=== PATIENT | male | born 1965 | race Caucasian/White ===

== ENCOUNTER 2018-09-23 23:42 | Inpatient (IN) ==
--- OUTSIDE RECORDS SUMMARY | 2018-09-23 23:44 | External Medical Summary | Continuity of Care Document ---
:1965 Author Name Kian Portillo Address Unavailable Unavailable , Care Team Providers Name Role Phone NonMNPG M.DBala Unavailable [email or web address] [email or web address], NO Unavailable Unavailable Problems Active medical history not documented Allergies and Adverse Reactions Allergy history not documented Medications Medications not documented Procedures Procedures not documented Immunizations Immunizations not documented Plan of Treatment Planned Observations Planned Goals not documented Results No Known Results Results not documented
[2018-09-24] MEDS ORDERED: ONDANSETRON INJ 2 MG/ML 2 ML VIAL IV STA (00:08)
[2018-09-24] MEDS: HYDROmorphone INJ 1 MG/ML SYRINGE IV PRN ×2 (00:17→00:44)
[2018-09-24 00:21] LABS: Basophils # (auto) 0.06 K/uL (0-0.2); Basophils % (auto) 0.6 %; Eosinophils # (auto) 0.12 K/uL (0-0.5); Eosinophils % (auto) 1.1 %; Hematocrit (blood only) 47.2 % (42-52); Hemoglobin 16.5 g/dL (14.0-18.0); Immature Granulocytes # (auto) 0.03 K/uL (0.00-0.02); Immature Granulocytes % (auto) 0.3 %; Lymphocytes % (auto) 19.7 %; Mean Corpuscular Volume 87.9 fL (80-100); Mean Platelet Volume 10.2 fL (7.4-10.4); Monocytes # (auto) 0.83 K/uL (0.11-0.59); Monocytes % (auto) 7.8 %; Neutrophils % (auto) 70.5 %; Platelet Count 216 K/uL (130-400); RDW Coefficient of Variation 12.8 % (11.5-14.5); RDW Standard Deviation 40.9 fL (36.4-46.3); Red Blood Count 5.37 M/uL (4.7-6.1); White Blood Count 10.64 K/uL (4.8-10.8)
[2018-09-24 00:45] LABS: Albumin Level 3.5 gm/dl (3.4-5.0); BUN Creatinine Ratio 14.5 (10-20); Bilirubin,Total 0.6 mg/dl (0.2-1); Calcium 9.2 mg/dl (8.5-10.1); Creatinine Clr Calc Pharmacy 61.1 ml/min; Est GFR (African American) 65.3; Est GFR (Non-African American) 56.3; Globulin 3.6 gm/dl (2.5-4.0); Total Protein 7.1 gm/dl (6.4-8.2)
[2018-09-24] MEDS ORDERED: KETOROLAC TROMETHAMINE 15 MG/ML VIAL IV ONE (00:57)
[2018-09-24] MEDS ORDERED: PROMETHAZINE 25 MG/51 ML BAG IV STA (01:51)
--- NOTE | 2018-09-24 02:21 | Emergency Department Note ---
Entered by Nichole Falcon acting as a scribe for ED Provider Note CHIEF COMPLAINT: Right flank pain HISTORY OF PRESENT ILLNESS: The patient is a 53 year old male who presents to the Emergency Room with complaints of constant right flank pain that began 22:00, about 2 hours ago. The patient rates the pain as a 10/10 in severity. He complains of RLQ abdominal pain, nausea/vomiting, inability to void, and right testicle soreness. Pt denies LOC, headache, fevers, chills, diaphoresis, visual changes, neck pain, chest pain, breathing difficulties, back pain, melena, hematochezia, urinary symptoms, numbness, weakness, lymphadenopathy, rash, or other complaints. He notes that he's had two similar episodes in the past, but the symptoms relieved without treatment. REVIEW OF SYSTEMS: See HPI for pertinent positives and negatives. A total of ten systems were reviewed and were otherwise negative. PMHx/PSHx: Appendectomy SOCIAL HISTORY: Patient lives at home. PHYSICAL EXAM: GENERAL: Awake, alert, very uncomfortable-appearing, in no distress HENT: Normocephalic, atraumatic. Oropharynx unremarkable. EYES: PERRL. Normal conjunctiva. Sclera non-icteric. NECK: Inspection normal. Non-tender. Supple. No nuchal rigidity. FROM. No masses. RESPIRATORY: Clear to auscultation. No wheezes. No rales. Normal respiratory effort. CARDIAC: Normal rate. Normal rhythm. No murmurs. No rubs. Extremities warm and well perfused. Pulses equal. No JVD. GI: Soft, non-distended. RLQ tenderness to palpation. No rebound or guarding. No masses. RECTAL: Deferred. MUSCULOSKELETAL: Atraumatic. Chest examination reveals no tenderness. The back is symmetrical on inspection without obvious abnormality. There is right CVA tenderness to palpation. No joint edema. LOWER EXTREMITIES: Calves are equal size bilaterally and non-tender. No edema. No discoloration. NEURO: Normal sensorium. No sensory or motor deficits noted. SKIN: No rash or jaundice noted. EMERGENCY DEPARTMENT COURSE: 0001: Past medical records reviewed. The patient was evaluated in room A12B, and a complete history and physical examination were performed. 0038: I reassessed the patient. The patient stated that he was feeling better, but he still had some pain. 0151: The patient still having pain and nausea. IV Phenergan was ordered. The patient is in no condition to be discharged. [facility] and discussed the case with Dr. Gonzalez. MEDICAL DECISION MAKING: Triage Nursing notes reviewed and agree them. Additional history obtained from the family. The patient's history was concerning for flank and abdominal pain. Differential diagnosis: Etiologies such as renal colic, appendicitis, diverticulitis, mesenteric ischemia, aortic pathology, infections, inflammatory bowel disease, PUD, biliary pathology, UTI, as well as others were entertained. Physical examination findings: As above. ER treatment provided: Saline hydration IV Zofran IV Dilaudid x2 IV Toradol On reassessment the patient felt nausea and more pain. He vomited. IV Phenergan. Diagnostic interpretation by me: The labs revealed an unremarkable CBC and chemistry panel. Urinalysis revealed hematuria. There was no sign of UTI. Imaging studies: CT scan performed and revealed right-sided hydroureter and distal right ureteral stone. It appears that the patient has isolated renal colic from a right sided stone. Unfortunately the patient is still symptomatic. He will need further management in the hospital. Consultation: [facility] The case was discusse d and diagnostics were reviewed. The patient was evaluated in the ER for further management. IMPRESSION: Ureterolithiasis, Right flank pain PLAN: Admitted The scribe's documentation has been prepared under my direction and personally reviewed by me in its entirety. I confirm that the note above accurately reflec ts all work, treatment, procedures, and medical decision making performed by me. Impression & Plan Ureterolithiasis, Right flank pain Past Med/Surg History Surgical History History of appendectomy Social History Feels Safe at Home: Yes Smoking Status: Never smoker Results & Data Vital Signs Vital Signs - 24 hr 09/23/18 23:46 09/24/18 00:18 09/24/18 00:36 Temperature 36.7 C Temperature Source Oral Sepsis Recent Fever Within 48 Hours No Sepsis New/Unexplained Change in Mental Status No Sepsis Action Taken by Nursing No Action Required Pulse Rate 71 Pulse Rate [Finger] 65 62 Respiratory Rate 22 18 20 Respiratory Effort / Characteristics Non-Labored Spontaneous Respiratory Depth Normal Blood Pressure 140/78 Blood Pressure [Right Arm] 145/90 H 145/92 H Blood Pressure Mean 98 Blood Pressure Mean [Right Arm] 108 109 Blood Pressure Position [Right Arm] Sitting Pulse Oximetry 98 99 98 Oxygen Delivery Method Room Air Room Air Room Air Oxygen Flow Rate 09/24/18 01:58 Temperature Temperature Source Sepsis Recent Fever Within 48 Hours Sepsis New/Unexplained Change in Mental Status Sepsis Action Taken by Nursing Pulse Rate Pulse Rate [Finger] 67 Respiratory Rate 16 Respiratory Effort / Characteristics Non-Labored Spontaneous Respiratory Depth Normal Blood Pressure Blood Pressure [Right Arm] 136/80 Blood Pressure Mean Blood Pressure Mean [Right Arm] 98 Blood Pressure Position [Right Arm] Pulse Oximetry 95 Oxygen Delivery Method Nasal Cannula Oxygen Flow Rate 2 Home Medications Current Medication List: was personally reviewed by me Laboratory Data Attestation: I reviewed the patient's lab results. Result diagrams: 09/24/18 00:10 09/24/18 00:10 Lab Results 09/24/18 09/24/18 Range/Units 00:10 00:10 WBC 10.64 (4.8-10.8) K/uL RBC 5.37 (4.7-6.1) M/uL Hgb 16.5 (14.0-18.0) g/dL Hct 47.2 (42-52) % MCV 87.9 (80-100) fL MCH 30.7 (25-34) pg MCHC 35.0 (32-36) g/dL RDW Std Deviation 40.9 (36.4-46.3) fL RDW Coeff of Maria E 12.8 (11.5-14.5) % Plt Count 216 (130-400) K/uL MPV 10.2 (7.4-10.4) fL Immature Gran % (Auto) 0.3 % Neut % (Auto) 70.5 % Lymph % (Auto) 19.7 % [place] % (Auto) 7.8 % Eos % (Auto) 1.1 % Baso % (Auto) 0.6 % Immature Gran # (Auto) 0.03 H (0.00-0.02) K/uL Neut # (Auto) 7.50 H (1.4-6.5) K/uL Lymph # (Auto) 2.10 (1.2-3.4) K/uL [place] # (Auto) 0.83 H (0.11-0.59) K/uL Eos # (Auto) 0.12 (0-0.5) K/uL Baso # (Auto) 0.06 (0-0.2) K/uL Sodium 141 (136-145) mmol/L Potassium 4.0 (3.5-5.1) mmol/L Chloride 108 H (98-107) mmol/L Carbon Dioxide 21 (21-32) mmol/L Anion Gap 12.0 H (3-11) BUN 21 H (7-18) mg/dl Creatinine 1.43 H (0.6-1.4) mg/dl Est Cr Clr Drug Dosing 61.1 ml/min Est GFR ( Amer) 65.3 Est GFR (Non-Af Amer) 56.3 BUN/Creatinine Ratio 14.5 (10-20) Glucose 128 H (70-99) mg/dl Calcium 9.2 (8.5-10.1) mg/dl Total Bilirubin 0.6 (0.2-1) mg/dl AST 24 (15-37) U/L ALT 39 (12-78) U/L Alkaline Phosphatase 91 (45-117) U/L Total Protein 7.1 (6.4-8.2) gm/dl Albumin 3.5 (3.4-5.0) gm/dl Globulin 3.6 (2.5-4.0) gm/dl Albumin/Globulin Ratio 1.0 (0.9-2) Lipase 144 (73-393) U/L Administered Medications Hydromorphone HCl (Dilaudid) 1 mg IV Q15M PRN PRN Reason: Pain Stop: 10/08/18 00:07 Last Admin: 09/24/18 00:44 Dose: 1 mg Documented by: [id number] Admin: 09/24/18 00:17 Dose: 1 mg Documented by: [id number] Discontinued Medications Promethazine HCl (Phenergan) 25 mg in 51 mls @ 204 mls/hr IV NOW STA Stop: 09/24/18 02:05 Last Admin: 09/24/18 01:58 Dose: 204 mls/hr Documented by: [id number] Ketorolac Tromethamine (Toradol) 10 mg IV NOW ONE Stop: 09/24/18 00:58 Last Admin: 09/24/18 01:02 Dose: 10 mg Documented by: [id number] Ondansetron HCl (Zofran) 4 mg IV NOW STA Stop: 09/24/18 00:09 Last Admin: 09/24/18 00:17 Dose: 4 mg Documented by: [id number] Imaging Data Radiologist's Impression: Radiology results as stated below per my review and the radiologist's interpretation: CT ABDOMEN & PELVIS Without Contrast: 4 mm distal right ureteral calculus caus ing mild-moderate hydroureteronephrosis. Bilateral intrarenal calculi. Radiologist: Flaco Wallace MD Study ready at 00:34 and initial results transmitted at 01:12. Blood Pressure Blood Pressure Findings: Elevated blood pressure Discharge Plan Visit Data Chief Complaint: Kidney Stone Stated Complaint: abd pain/kidney pain ED Provider: Tobias Balbuena Discharge Problem: Ureterolithiasis, Right flank pain Forms Stand Alone Forms: My [facility] Prescriptions Prescriptions: No Action No Known Home Medications RF: 0 The scribe's documentation has been prepared under my direction and personally reviewed by me in its entirety. I confirm that the note above accurately reflects all work, treatment, procedures, and medical decision making performed by me.
[2018-09-24] MEDS ORDERED: ACETAMINOPHEN 325 MG TAB PO PRN (03:10)
[2018-09-24] MEDS ORDERED: POLYETHYLENE (MIRALAX) 17 GM PACK PO PRN (03:10)
[2018-09-24] MEDS ORDERED: ONDANSETRON INJ 2 MG/ML 2 ML VIAL IV PRN (03:10)
[2018-09-24] MEDS ORDERED: MoRPHine SULFATE 4 MG/ML 1 ML CARP\\VIAL IV PRN (03:10)
[2018-09-24] MEDS: SODIUM CHLORIDE 0.9% 1000ML 1,000 ML IV SCH ×2 (03:37→11:08)
--- NOTE | 2018-09-24 06:26 | History and Physical Report ---
DATE OF ADMISSION: 09/24/2018 CHIEF COMPLAINT: Renal colic. HISTORY OF PRESENT ILLNESS: This is 53-year-old male with no significant past medical history present with the right renal colic. Has severe pain in right flank region radiating to his groin around last evening associated with some nausea and vomiting. No kidney stones in the past. Denies any burning micturition or hematuria. Denies any fever, chills, feeling nauseous and dizzy. No headache, no blurred vision, no earache, no runny nose, no sore throat, no difficulty swallowing. No chest pain and no shortness of breath. No cough. No swelling in the legs. No rash. Resting comfortably and hemodynamically stable. ALLERGIES: No known drug allergies. PAST MEDICAL HISTORY: None. PAST SURGICAL HISTORY: Appendectomy. MEDICATIONS: None. FAMILY HISTORY: Nothing significant. SOCIAL HISTORY: Smoking history present. REVIEW OF SYMPTOMS: As per HPI. Rest of review of system negative. PHYSICAL EXAMINATION: GENERAL: The patient is of moderate build, not in acute distress. VITAL SIGNS: Temperature 36.7, pulse 67, respiratory rate 16, blood pressure 136/80, oxygen 95% on 2 liters. HEENT: No pallor, no icterus. Pupils equal, round, reactive to light. NECK: No JVD. No neck mass. No carotid bruit. CARDIOVASCULAR: S1, S2 heard, regular rate and rhythm, no murmur, no gallop. RESPIRATORY SYSTEM: Normal AP diameter. No accessory muscle use. No wheezing, no crackles. ABDOMEN: Soft, bowel sounds present, nontender. No distention. No CVA tenderness, no guarding, no rigidity. CENTRAL NERVOUS SYSTEM: Nonfocal. EXTREMITIES: No edema, no erythema. LABORATORIES: WBC 10.6, hemoglobin 16.5, hematocrit 47.2, platelets 216. Sodium 141, potassium 3.4, chloride 108, bicarbonate 21, creatinine 1.4, serum glucose 128, calcium 9.2, total bilirubin 0.6, AST 24, ALT 39, alkaline phosphatase 91, lipase 144. CT of the abdomen and pelvis, unofficial report 4 mm right kidney stone. ASSESSMENT AND PLAN: This is a 53-year-old male who presents with right renal colic. 1. Right renal colic, right kidney stone 4 mm. CAT scan unofficial report. We will wait for the official report. The patient is afebrile and no white count. We will follow the urinalysis. If it is positive we will start on antibiotics. We will keep him n.p.o., IV fluids and consult Urology for possible stent placement if the patient does not passed the stone or gets infected. 2. Deep venous thrombosis prophylaxis. Sequential compression devices. DISPOSITION: Admit to medical floor. Expect to discharge home and follow with family doctor. Level 1 full code. MTDD
--- NOTE | 2018-09-24 06:55 | CT Scan Report ---
CT SCAN OF THE ABDOMEN AND PELVIS WITHOUT CONTRAST CLINICAL HISTORY: Right flank pain COMPARISON STUDY: No previous studies for comparison. TECHNIQUE: CT scan of the abdomen and pelvis was performed from the lung bases to the proximal femurs . Images are reviewed in the axial, sagittal, and coronal planes. IV contrast was not administered fo r this examination. A dose lowering technique was utilized adhering to the principles of ALARA. CT DOSE: 411.30 mGy.cm FINDINGS: Lower chest: There is a solid 4 mm right middle lobe pulmonary nodule. The lungs patient, no further follow-up is indicated. There is a 28 mm lingular lung cyst. Liver: The unenhanced liver is normal in size, contour, and attenuation. There is no intrahepatic martinez iary ductal dilatation. Gallbladder: Unremarkable. Spleen: Normal in size and attenuation. Pancreas: Unremarkable. Adrenal glands: Unremarkable. Kidneys: There is a 3.5 mm lower pole right renal calculus. There is a 3 mm lower pole left renal freida culus. There are left renal parapelvic cysts. There is mild right-sided hydronephrosis and hydrourete r. There is a 4 mm distal right UVJ calculus. Bowel: There are no transition zone to indicate bowel obstruction. There is no evidence of acute dive rticulitis. By history the appendix is surgically absent. Peritoneum: There is no intraperitoneal free air or abdominal ascites. Vasculature: The abdominal aorta is normal in course and caliber. Adenopathy: None. Pelvic viscera: The bladder, and pelvic viscera are unremarkable. Skeletal structures: No destructive osseous lesions are seen. There is a suspected L1-2 disc protrusi on with secondary spinal canal narrowing. IMPRESSION: 1. Bilateral nephrolithiasis 2. 4 mm right UVJ calculus with secondary obstructive changes 3. No evidence of bowel obstruction. No evidence of free air. Electronically signed by: James Irene M.D. 09/24/2018 6:53 AM
[2018-09-24 06:58] LABS: Basophils # (auto) 0.02 K/uL (0-0.2); Basophils % (auto) 0.2 %; Eosinophils # (auto) 0.01 K/uL (0-0.5); Eosinophils % (auto) 0.1 %; Hematocrit (blood only) 44.1 % (42-52); Immature Granulocytes # (auto) 0.02 K/uL (0.00-0.02); Immature Granulocytes % (auto) 0.2 %; Lymphocytes # (auto) 1.42 K/uL (1.2-3.4); Lymphocytes % (auto) 15.6 %; Mean Corpuscular Volume 89.8 fL (80-100); Mean Platelet Volume 9.7 fL (7.4-10.4); Monocytes # (auto) 0.86 K/uL (0.11-0.59); Monocytes % (auto) 9.5 %; Neutrophils # (auto) 6.75 K/uL (1.4-6.5); Neutrophils % (auto) 74.4 %; Platelet Count 182 K/uL (130-400); RDW Coefficient of Variation 12.9 % (11.5-14.5); RDW Standard Deviation 42.5 fL (36.4-46.3); Red Blood Count 4.91 M/uL (4.7-6.1); White Blood Count 9.08 K/uL (4.8-10.8)
[2018-09-24 07:34] LABS: BUN Creatinine Ratio 16.5 (10-20); Calcium 8.4 mg/dl (8.5-10.1); Creatinine Clr Calc Pharmacy 67.2 ml/min; Est GFR (African American) 73.2; Est GFR (Non-African American) 63.2; Magnesium 2.2 mg/dl (1.8-2.4); Potassium 4.3 mmol/L (3.5-5.1)
--- NOTE | 2018-09-24 08:32 | Hospitalist Progress Note ---
Date of Service September 24, 2018 Subjective FABRICIO? cr 1.4. no baseline labs. On fluids. Will follow labs. Results & Data Vital Signs (Past 12 Hours) Vital Signs Temp Pulse Pulse Resp BP BP Pulse Ox 09/24/18 07:18 36.4 C L 59 L 18 112/71 95 09/24/18 03:15 36.5 C 53 L 14 129/82 95 09/24/18 02:56 68 18 115/77 96 09/24/18 01:58 67 16 136/80 95 09/24/18 00:36 62 20 145/92 H 98 09/24/18 00:18 65 18 145/90 H 99 09/23/18 23:46 36.7 C 71 22 140/78 98
[2018-09-24] MEDS ORDERED: TAMSULOSIN HCL 0.4 MG CAP PO SCH (09:00)
--- NOTE | 2018-09-24 09:41 | Hospitalist Progress Note ---
Date of Service September 24, 2018 Assessment & Plan (1) Ureterolithiasis: right renal colic secondary to right renal calculus with mild right-sided hydronephrosis and hydroureter -CT SCAN OF THE ABDOMEN AND PELVIS WITHOUT CONTRAST Kidneys: There is a 3.5 mm lower pole right renal calculus. There is a 3 mm lower pole left renal calculus. There are left renal parapelvic cysts. There is mild right-sided hydronephrosis and hydroureter. There is a 4 mm distal right UVJ calculus -Pain is controlled at this time -will continue IV fluids 125cc/hr as started by admitting hospitalist -continue tamsulosin -will have KUB -Urine analysis sample sent, awaiting results -[facility] urologist requested Acute kidney injury -unknown baseline creatinine -admission creatinine 1.43 and this downtrended to 1.3 with IV fluids as of AM of 09/24/18 Deep venous thrombosis prophylaxis. Sequential compression devices Subjective Patient seen and examined at bedside this morning. Patient ambulatory with IV fluids at 125 cc/hr. patient just made urine and sample cup is dark yellow. Patient feels right flank pain is controlled. He has not asked for additional pain medications since 1 AM. Patient denies vomiting. no chest pain. no shortness of breath. no abdomen pain. no dizziness. no lightheadedness Physical Exam Constitutional: WD/WN, vitals as above Eyes: PERRL, conjunctivae normal, anicteric sclerae EOM intact bilaterally ENMT: external ear and nose normal, oropharynx normal Neck: trachea midline, no thyromegaly normal visual inspection Respiratory: normal respiratory effort, lungs clear to auscultation Cardiovascular: RRR, no murmur, no edema Gastrointestinal (Abdomen): normal bowel sounds, soft, nontender, no hepatosplenomegaly Musculoskeletal: no cyanosis or clubbing, extremities motor strength 5/5 Head/Neck/Chest: normocephalic and head atraumatic Neurologic: PERRL, EOMI, accommodation nl, no face palsy, no dysarthria CN's II-XI intact bilaterally Psychiatric: A+Ox3, euthymic affect Results & Data Vital Signs (Past 12 Hours) Vital Signs Temp Pulse Pulse Resp BP BP Pulse Ox 09/24/18 07:18 36.4 C L 59 L 18 112/71 95 09/24/18 03:15 36.5 C 53 L 14 129/82 95 09/24/18 02:56 68 18 115/77 96 09/24/18 01:58 67 16 136/80 95 09/24/18 00:36 62 20 145/92 H 98 09/24/18 00:18 65 18 145/90 H 99 09/23/18 23:46 36.7 C 71 22 140/78 98
[2018-09-24 09:53] LABS: Appearance Urine Clear (Clear); Bacteria Urine Automated Negative (Negative); Bilirubin Urine Negative (Negative); Blood Urine Trace (Negative); Color Urine Dark Yellow; Epithelial Cell Urine Auto 0-5 /lpf (0-5); Glucose Urine UA Negative (Negative); Ketones Urine Trace (Negative); Leukocyte Esterase Urine Negative (Negative); Nitrite Urine Negative (Negative); Protein Urine Negative (Negative); RBC Urine Automated 0-4 /hpf (0-4); Specific Gravity Urine 1.022 (1.000-1.030); Urobilinogen Urine Negative (Negative)
--- NOTE | 2018-09-24 10:38 | XRay Report ---
XR KUB/Abdomen 1 view CLINICAL HISTORY: Kidney stones COMPARISON STUDY: CT scan dated 09/24/2018 FINDINGS: There is a tiny lower pole right renal calculus. The patient's lower pole left renal calcul us is clinically visualized. There are several pelvic basin calcifications. It is unclear which of th anuj correlates with the recently described distal right ureteral calculus. IMPRESSION: 1. Bilateral nephrolithiasis although the lower pole left renal calculus is only equivocally visualiz ed 2. Right pelvic basin calcifications. It is difficult with certainty to determine which of these ronnie elates with the recently described distal right ureteral calculus Electronically signed by: James Irene M.D. 09/24/2018 10:36 AM
[2018-09-24] MEDS ORDERED: IBUPROFEN 200 MG TAB PO PRN (12:11)
--- NOTE | 2018-09-24 12:20 | Discharge Summary ---
Date of Service September 24, 2018 Admission HPI Per Admitting Provider HISTORY OF PRESENT ILLNESS: This is 53-year-old male with no significant past medical history present with the right renal colic. Has severe pain in right flank region radiating to his groin around last evening associated with some nausea and vomiting. No kidney stones in the past. Denies any burning micturition or hematuria. Denies any fever, chills, feeling nauseous and dizzy. No headache, no blurred vision, no earache, no runny nose, no sore throat, no difficulty swallowing. No chest pain and no shortness of breath. No cough. No swelling in the legs. No rash. Resting comfortably and hemodynamically stable. ALLERGIES: No known drug allergies. PAST MEDICAL HISTORY: None. PAST SURGICAL HISTORY: Appendectomy. MEDICATIONS: None. FAMILY HISTORY: Nothing significant. SOCIAL HISTORY: Smoking history present. REVIEW OF SYMPTOMS: As per HPI. Rest of review of system negative. Admission Exam Per Admitting Provider PHYSICAL EXAMINATION: GENERAL: The patient is of moderate build, not in acute distress. VITAL SIGNS: Temperature 36.7, pulse 67, respiratory rate 16, blood pressure 136/80, oxygen 95% on 2 liters. HEENT: No pallor, no icterus. Pupils equal, round, reactive to light. NECK: No JVD. No neck mass. No carotid bruit. CARDIOVASCULAR: S1, S2 heard, regular rate and rhythm, no murmur, no gallop. RESPIRATORY SYSTEM: Normal AP diameter. No accessory muscle use. No wheezing, no crackles. ABDOMEN: Soft, bowel sounds present, nontender. No distention. No CVA tenderness, no guarding, no rigidity. CENTRAL NERVOUS SYSTEM: Nonfocal. EXTREMITIES: No edema, no erythema. Principal Diagnosis right renal colic secondary to right renal calculus with mild right-sided hydronephrosis and hydroureter; acute kidney injury Discharge Exam Constitutional WD/WN, vitals as above Eyes PERRL, conjunctivae normal, anicteric sclerae EOM intact bilaterally ENMT external ear and nose normal, oropharynx normal Neck trachea midline, no thyromegaly normal visual inspection Respiratory normal respiratory effort, lungs clear to auscultation Cardiovascular RRR, no murmur, no edema Gastrointestinal (Abdomen) normal bowel sounds, soft, nontender, no hepatosplenomegaly Musculoskeletal no cyanosis or clubbing, extremities motor strength 5/5 Head/Neck/Chest: normocephalic and head atraumatic Neurologic PERRL, EOMI, accommodation nl, no face palsy, no dysarthria CN's II-XI intact bilaterally Psychiatric A+Ox3, euthymic affect Discharge Data Allergies Allergy/AdvReac Type Severity Reaction Status Date / Time No Known Allergies Allergy Unverified 09/24/18 01:35 Consultations 09/24/18 02:11 ED Decision to Admit Stat 09/24/18 08:00 Consult Urology Routine Ordered Studies 09/24/18 00:08 CT abd pelvis wo con Urgent Hospital Course (1) Ureterolithiasis: right renal colic secondary to right renal calculus with mild right-sided hydronephrosis and hydroureter; acute kidney injury -right flank pain symptoms on hospital presentation -CT SCAN OF THE ABDOMEN AND PELVIS WITHOUT CONTRAST Kidneys: There is a 3.5 mm lower pole right renal calculus. There is a 3 mm lower pole left renal calculus. There are left renal parapelvic cysts. There is mild right-sided hydronephrosis and hydroureter. There is a 4 mm distal right UVJ calculus -Patient received IV fluids and Pain is controlled -Normal urine analysis -Follow up KUB: There is a tiny lower pole right renal calculus. The patient's lower pole left renal calculus is clinically visualized. There are several pelvic basin calcifications. It is unclear which of these correlates with the recently described distal right ureteral calculus -Patient was seen by [facility] Urology service who advised that patient may be discharged if no acute findings on KUB and if pain is controlled -Patient has information to follow up with [facility] Urology service and would like to be discharged Acute kidney injury -unknown baseline creatinine -admission creatinine 1.43 and this downtrended to 1.3 with IV fluids as of AM of 09/24/18. Patient then received IV fluids to noon of 09/24/18. Patient is advised to follow up with a primary care doctor to have renal function labs checked Patient would like to self-schedule appointment with Dmitri Cerda Address: [address], [place] [address] Patient will be discharged with acetaminophen 325 mg every 6 hours as needed for mild pain of fever Patient will be discharged with ibuprofen 200 mg every 6 hours as needed for mo derate pain Patient may take tamsulosin daily if there is decreased urine output or if straining to make urine Total Time Total Time Spent Total Time Spent (In Minutes): 40 minutes Total Time Includes: Examination of the Patient, Discharge Planning, Medication Reconciliation and Communication With Other Providers Discharge Plan Discharge Items Patient Disposition: Home - Self-Care Reason For Visit: KIDNEY STONE Discharge Diagnosis: right renal colic secondary to right renal calculus with mild right-sided hydronephrosis and hydroureter; acute kidney injury Condition: Good Discharge Goals: Improve disease control Activity: Per 'Additional Instructions' section Non-emergency contact: Primary Care Provider and Urologist Call non-emergency contact if: you have any medication questions Follow-up/Referrals: PCP,PATRICIA [Primary Care Provider] - Diet: Regular Addtl Provider Instructions: CT SCAN OF THE ABDOMEN AND PELVIS WITHOUT CONTRAST Kidneys: There is a 3.5 mm lower pole right renal calculus. There is a 3 mm lower pole left renal calculus. There are left renal parapelvic cysts. There is mild right-sided hydronephrosis and hydroureter. There is a 4 mm distal right UVJ calculus Patient received IV fluids and Pain is controlled Normal urine analysis Follow up KUB: There is a tiny lower pole right renal calculus. The patient's lower pole left renal calculus is clinically visualized. There are several pelvic basin calcifications. It is unclear which of these correlates with the recently described distal right ureteral calculus Patient was seen by [facility] Urology service who advised that patient may be discharged if no acute findings on KUB and if pain is controlled Patient has information to follow up with [facility] Urology service and would like to be discharged Acute kidney injury -unknown baseline creatinine -admission creatinine 1.43 and this downtrended to 1.3 with IV fluids as of AM of 09/24/18. Patient then received IV fluids to noon of 09/24/18. Patient is advised to follow up with a primary care doctor to have renal function labs checked Patient would like to self-schedule appointment with Dmitri Cerda Address: [address], [place] [address] Patient will be discharged with acetaminophen 325 mg every 6 hours as needed for mild pain of fever Patient will be discharged with ibuprofen 200 mg every 6 hours as needed for moderate pain Patient may take tamsulosin daily if there is decreased urine output or if straining to make urine Prescriptions: New tamsulosin 0.4 mg Capsule 0.4 mg PO QAM 10 Days Qty: 10 RF: 0 acetaminophen 325 mg tablet 325 mg PO Q6H PRN (Reason: mild pain or fever) 5 Days Qty: 20 RF: 0 ibuprofen 200 mg Tablet 200 mg PO Q6H PRN (Reason: moderate pain) 5 Days Qty: 20 RF: 0 Continued No Known Home Medications RF: 0 Stand-Alone Forms: [facility] Discharge Orders: Discharge Order (Routine); Ordered 09/24/18 Ordered By: Luis Milian Admission Data Admit Date/Time: 09/24/18 02:29 Attending Provider: Luis Milian Admit Provider: Ferdinand Gonzalez Primary Care Provider: PCP,NO Other Providers: Ferdinand Gonzalez ; Say Thomas Service: Surgical Services Other Interventions: Discharge Summary Assessment (RN) Last Done: 09/24/18 12:18
--- NOTE | 2018-09-25 00:56 | Consultation Report ---
DATE OF CONSULTATION: 09/24/2018 REASON FOR CONSULTATION: Right ureteral calculus. HISTORY OF PRESENTATION: The patient is a 53-year-old male who may have passed several stones in the past who on CAT scan presents with several days of severe flank pain with a CAT scan that shows a distal 3.5-4 mm right UVJ stone and 2 stones in his kidneys, one on the right and one on the left, both in the lower pole, both around 3-4 mm. The patient is in relatively good health. Upon seeing him this morning, he had been complaining of severe flank pain and urgency and that seems to have resolved. He currently is having no pain. He denies any fever. He thinks he has passed stones in the past because he has had similar episodes, but they quickly resolved. PAST MEDICAL HISTORY: Essentially negative for high blood pressure, diabetes, or heart problems. Otherwise unremarkable. PAST SURGICAL HISTORY: Significant for appendectomy. ALLERGIES: He has no known drug allergies. REVIEW OF SYSTEMS: Essentially negative except for the flank pain that he had had, but currently is not having this. So his review of systems is essentially negative. PHYSICAL EXAMINATION: GENERAL: The patient is of moderate build with no apparent distress. VITAL SIGNS: Stable. HEENT: Unremarkable. NECK: Without mass. HEART: Without any obvious edema. LUNGS: No respiratory distress. ABDOMEN: Soft, no flank pain to percussion. NEUROLOGIC: He is alert and oriented without any obvious focal or sensory deficits. EXTREMITIES: Unremarkable without edema or erythema. LABORATORY DATA: He has a normal white blood cell count. His labs are essentially unremarkable. IMAGING DATA: CAT scan as stated shows two stones, one in the right and one in the left kidney and then a distal right ureteral stone. ASSESSMENT AND PLAN: Resolved renal colic, possible passage of stone. The patient is straining his urine. He is going to get a KUB. Given how close the stone appeared to be passing, would not intervene given his absence of pain. If the stone passes, he can be discharged to home and frankly, if the patient is not having pain tomorrow and the stone has not passed, would discharge him to home with oral pain medicines unless his pain recurs. In addition, the patient should be followed as an outpatient with a 24-hour urine collection. He does have a family history of father with prostate cancer and at some point will need a PSA and a digital rectal exam.
== END 2018-09-24 12:49 | disposition home or self-care (01) | DRG 694 ==
LOC: ED 23:42 → 3N 09-24 02:29